=== PATIENT | female | born 2000 | race Two or more races ===

== ENCOUNTER 2021-01-13 23:37 | Emergency (ER) | payer OTHER ==
[~2021-01-13] VITALS: Ht 157.5 cm; Wt 54.4 kg
[2021-01-14] MEDS ORDERED: KETO10TA2 PO (03:53)
[2021-01-14] MEDS ORDERED: CEFUROXIME500 MG PO (03:53)
== END 2021-01-14 03:57 | disposition home or self-care (01) ==
LOC: ER 23:37
DX: S67.191A Crushing injury of left index finger, initial encounter (principal); W23.0XXA Caught, crushed, jammed, or pinched between moving objects, initial encounter; Y93.89 Activity, other specified; Y92.69 Other specified industrial and construction area as the place of occurrence of the external cause; Y99.8 Other external cause status

== ENCOUNTER → 2023-09-01 | Emergency (ER) | payer OTHER ==
[~2023-09-01] VITALS: Ht 157.5 cm; Wt 54.4 kg
[~2023-09-01] MED LIST: CEFUROXIME500 MG PO; CLEOCIN HCL300 MG PO; KETO10TA2 PO; MEDROLPACK PO
== END | disposition home or self-care (01) ==
LOC: ER 20:07
DX: L98.9 Disorder of the skin and subcutaneous tissue, unspecified (principal)

== ENCOUNTER 2023-09-19 23:37 | Emergency (ER) | payer OTHER ==
[~2023-09-19] VITALS: Ht 157.5 cm; Wt 54.4 kg
== END 2023-09-20 | disposition home or self-care (01) ==
LOC: ER
DX: L98.8 Other specified disorders of the skin and subcutaneous tissue (principal)